=== PATIENT | male | born 1965 | race Two or more races ===

== ENCOUNTER 2017-08-29 19:38 | Emergency (ER) | payer SELFPAY ==
[~2017-08-29] VITALS: Ht 170.2 cm; Wt 81.6 kg
--- NOTE | 2017-08-29 19:44 | Emergency Room Report ---
History of Present Illness General Chief Complaint: Medical Clearance Source: Patient Present Illness HPI This patient is brought in by [employer]. Initially he was in custody for being drunk in public. He was brought in for medical clearance for incarceration. The patient admits that he drank alcohol and drugs today. He has no other complaints. He does not desire any further evaluation by the emergency department. Allergies: Coded Allergies: UNABLE TO ASSESS (Unverified , 08/29/17) Patient History Past Medical History: none Social History: Reports: alcohol use, drug use Reviewed Nursing Documentation: PMH: Agreed; PSxH: Agreed Nursing Documentation-PMH Past Medical History: No Stated History Review of Systems All Other Systems: negative except mentioned in HPI Physical Exam Sp02 EP Interpretation: reviewed, normal General Appearance: no apparent distress, alert, GCS 15, non-toxic Head: normocephalic, atraumatic Eyes: bilateral eye normal inspection, bilateral eye PERRL ENT: hearing grossly normal, normal pharynx, no angioedema, normal voice Neck: full range of motion, supple/symm/no masses Respiratory: chest non-tender, lungs clear, normal breath sounds, speaking full sentences Cardiovascular #1: regular rate, rhythm, no edema Gastrointestinal: normal bowel sounds, non tender, soft, non-distended, no guarding, no rebound Rectal: deferred Musculoskeletal: back normal, gait/station normal, normal range of motion, non- tender Neurologic: alert, oriented x3, responsive, motor strength/tone normal, sensory intact, speech normal Psychiatric: judgement/insight normal, memory normal, mood/affect normal, no suicidal/homicidal ideation Skin: normal color, no rash, warm/dry, well hydrated Medical Decision Making Diagnostic Impression: Primary Impression: ETOH intoxication Additional Impression: Drug abuse and dependence ER Course The patient presents with alcohol intoxication. He also admits to drug abuse. He initially presented for medical clearance for incarceration. However, [employer] decided that he was not in custody. He was released. The patient does not want any further evaluation by the emergency department. Further, he is articulate and clear about his wishes. My medical screening exam and physical evaluation does not identify an immediate life-threatening illness. The patient was educated on the dangers of alcohol and drug abuse. The patient was cleared to go to drunk holding area for being drunk in public. Disposition: HOME, SELF-CARE Condition: Improved JULISSA LACEY D.O. Aug 29, 2017 19:44
[2017-08-29 19:56] VITALS: BP 0/0
== END 2017-08-29 19:56 | disposition home or self-care (01) ==
LOC: EDBD 19:38 → EMR 19:47
DX: F10.129 Alcohol abuse with intoxication, unspecified (principal); F19.20 Other psychoactive substance dependence, uncomplicated
CPT/HCPCS: 99282